=== PATIENT | female | born 1960 | race Caucasian/White ===

== ENCOUNTER 2017-06-04 14:17 | Emergency (ER) | payer BC ==
[2017-06-04 14:50] LABS: ABS Basophils 0 10^3/ul (0-0.2); ABS Eosinophils 0.1 10^3/ul (0-0.6); ABS Lymphocytes 2.3 10^3/ul (1.0-4.8); ABS Monocytes 0.3 10^3/ul (0-0.8); ABS Neutrophils 3.5 10^3/ul (1.5-7.7); ABS Nucleated RBC 0 10^3/ul; Eosinophil % 1.2 % (0-6); Hematocrit 46 % (35-47); Hemoglobin 16.2 g/dl (12.0-16.0); Lymphocyte % 36.8 % (25-47); Mean Corpuscular HGB Conc 35 g/dl (31-36); Mean Corpuscular Hemoglobin 34 pg (27-31); Mean Corpuscular Volume 96 fL (80-97); Mean Platelet Volume 8 um3 (7.4-10.4); Nucleated Red Blood Cells % 0.1; Platelet Count 230 10^3/ul (150-450); Red Blood Count 4.77 10^6/ul (4.0-5.4); Red Cell Distribution Width 13 % (10.5-15); White Blood Count 6.2 10^3/ul (3.5-10.8)
--- NOTE | 2017-06-04 15:38 | RAD ---
INDICATION: Chest pain and tightness COMPARISON: None TECHNIQUE: PA and lateral views of the chest were obtained. FINDINGS: The heart and mediastinum are normal in size and contour. The lungs are grossly clear. There is no evidence of large pleural effusion. Degenerative changes of the thoracic spine include loss of intervertebral disc height and anterior marginal osteophyte formation. Involving the lateral aspect of the right sixth rib there is mild bony expansion of the cortex, possibly the site of an old rib fracture. This appears to have been present on the October 27, 2016 radiograph of the right shoulder. There is no radiographic evidence of free air beneath the diaphragm IMPRESSION: 1. No radiographic evidence of acute cardiopulmonary disease. 2. MILD BONY EXPANSION INVOLVING THE LATERAL RIGHT SIXTH RIB WHICH APPEARS STABLE COMPARED TO THE OCTOBER 27, 2016 RIGHT SHOULDER RADIOGRAPH. PLEASE CORRELATE TO PHYSICAL EXAMINATION AND HISTORY OF PRIOR INJURY AT THIS SITE.
[2017-06-04] MEDS ORDERED: Albuterol/Ipratropium NEB.SOL* Albuterol 2.5 MG/Ipratropium 0.5 MG 3 ML INH ONE (17:18)
[2017-06-04 19:15] VITALS: BP 111/62
--- NOTE | 2017-06-04 21:28 | ED ---
Andry Lunsford Jennifer, scribed for Dell Daniels MD on 06/04/17 at 1718 . HPI Chest Pain - HPI Summary HPI Summary: The patient is a 57 year old female who was sent from Urgent Care with tightness and pressure in the chest that began yesterday. She describes that the pain is alleviated when she relaxes and there are no aggravating factors. She additionally complains of coughing. The patient denies swelling in the legs. - History of Current Complaint Chief Complaint: EDChestPainROMI Time Seen by Provider: 06/04/17 17:07 Hx Obtained From: Patient Onset/Duration: Started Days Ago - yesterday, Still Present Timing: Intermittent Initial Severity: Mild Current Severity: Mild Pain Intensity: 1 Pain Scale Used: 0-10 Numeric Chest Pain Location: Mid Sternal Chest Pain Radiates: No Character: Pressure/Squeezing, Tightness Aggravating Factor(s): Nothing Alleviating Factor(s): Other: - Relaxed Associated Signs and Symptoms: Positive: Chest Pain, Cough. Negative: Edema - Allergy/Home Medications Allergies/Adverse Reactions: Allergies Allergy/AdvReac Type Severity Reaction Status Date / Time MS Penicillins [Penicillins] Allergy EDEMA ALL Verified 05/15/16 13:23 OVER BODY INCLUDING EYES Home Medications: Home Medications Albuterol HFA INHALER* [Ventolin HFA Inhaler*] 1 puff PO Q4HR PRN 06/04/17 [ History Confirmed 06/04/17] Ibuprofen TAB* [Motrin TAB* 800 MG] 800 mg PO DAILY 06/04/17 [History Confirmed 06/04/17] Multivitamins/Minerals TAB* [Thera M Plus TAB*] 1 tab PO DAILY 06/04/17 [ History Confirmed 06/04/17] PMH/Surg Hx/FS Hx/Imm Hx Endocrine/Hematology History: Denies: Hx Diabetes, Hx Systemic Lupus Erythematosus Cardiovascular History: Denies: Hx Congestive Heart Failure, Hx Hypertension, Hx Pacemaker/ICD Respiratory History: Reports: Hx Asthma - SEASONAL, Hx Seasonal Allergies History: Denies: Hx Dialysis, Hx Renal Disease Musculoskeletal History: Reports: Hx Back Problems - Herniated Disc in low back , Other Musculoskeletal History - Chronic Neck Pain Denies: Hx Rheumatoid Arthritis Sensory History: Reports: Hx Contacts or Glasses Denies: Hx Hearing Aid Opthamlomology History: Reports: Hx Contacts or Glasses Psychiatric History: Denies: Hx Panic Disorder - Cancer History Cancer Type, 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 CYST REMOVED LT FOOT. SKIN LESION LEFT POSTERIOR FOREARM REMOVED. LEFT FOOT- REMOVAL OF BACKED UP SWEAT GLAND Infectious Disease History: No Infectious Disease History: Denies: Traveled Outside the [place] in Last 30 Days - Family History Known Family History: Positive: Diabetes - Social History Alcohol Use: None Substance Use Type: Reports: None Smoking Status (MU): Heavy Every Day Tobacco Smoker Review of Systems Positive: Chest Pain - Tightness and pressure Positive: Cough Negative: Edema All Other Systems Reviewed And Are Negative: Yes Physical Exam - Summary Physical Exam Summary: Appearance: The patient is well-nourished in no acute distress and in no acute pain. Skin: The skin is warm and dry and skin color reflects adequate perfusion. HEENT: ~The head is normocephalic and atraumatic. The pupils are equal and reactive. The conjunctivae are clear and without drainage. ~Nares are patent and without drainage. ~Mouth reveals moist mucous membranes and the throat is without erythema and exudate. ~The external ears are intact. The ear canals are patent and without drainage. The tympanic membranes are intact. Neck: the neck is supple with full range of motion and non-tender. There are no carotid bruits. ~There is no neck vein distension. Respiratory: Chest is non-tender. ~Lungs are clear to auscultation and breath sounds are symmetrical and equal. Cardiovascular: Heart is regular rate and rhythm. ~There is no murmur or rub auscultated. ~~There is no peripheral edema and pulses are symmetrical and equal. Abdomen: The abdomen is soft and non-tender. ~There are normal bowel sounds heard in all four quadrants and there is no organomegaly palpated. Musculoskeletal: There is no back tenderness noted. ~Extremities are non-tender with full range of motion. ~There is good capillary refill. ~There is no peripheral edema or calf tenderness elicited. Neurological: Patient is alert and oriented to person, place and time. ~The patient has symmetrical motor strength in all four extremities. ~Cranial nerves are grossly intact. Deep tendon reflexes are symmetrical and equal in all four extremities. Psychiatric: The patient has an appropriate affect and does not exhibit any anxiety or depression. Triage Information Reviewed: Yes Vital Signs On Initial Exam: Initial Vitals Temp Pulse Resp BP Pulse Ox 98.1 F 96 16 168/98 98 06/04/17 14:20 06/04/17 14:20 06/04/17 14:20 06/04/17 14:20 06/04/17 14:20 Vital Signs Reviewed: Yes Diagnostics - Vital Signs Vital Signs Temp Pulse Resp BP Pulse Ox 06/04/17 16:55 84 20 97 06/04/17 16:53 123/67 06/04/17 16:21 100.2 F 88 122/62 98 06/04/17 14:20 98.1 F 96 16 168/98 98 - Laboratory Lab Results: Lab Results 06/04/17 06/04/17 06/04/17 Range/Units 14:40 14:40 14:40 WBC 6.2 (3.5-10.8) 10^3/ul RBC 4.77 (4.0-5.4) 10^6/ul Hgb 16.2 H (12.0-16.0) g/dl Hct 46 (35-47) % MCV 96 (80-97) fL MCH 34 H (27-31) pg MCHC 35 (31-36) g/dl RDW 13 (10.5-15) % Plt Count 230 (150-450) 10^3/ul MPV 8 (7.4-10.4) um3 Neut % (Auto) 56.8 (38-83) % Lymph % (Auto) 36.8 (25-47) % [place] % (Auto) 4.5 (1-9) % Eos % (Auto) 1.2 (0-6) % Baso % (Auto) 0.7 (0-2) % Absolute Neuts (auto) 3.5 (1.5-7.7) 10^3/ul Absolute Lymphs (auto) 2.3 (1.0-4.8) 10^3/ul Absolute Monos (auto) 0.3 (0-0.8) 10^3/ul Absolute Eos (auto) 0.1 (0-0.6) 10^3/ul Absolute Basos (auto) 0 (0-0.2) 10^3/ul Absolute Nucleated RBC 0 10^3/ul Nucleated RBC % 0.1 Sodium 139 (133-145) mmol/L Potassium 3.6 (3.5-5.0) mmol/L Chloride 106 (101-111) mmol/L Carbon Dioxide 29 (22-32) mmol/L Anion Gap 4 (2-11) mmol/L BUN 10 (6-24) mg/dL Creatinine 0.90 (0.51-0.95) mg/dL Est GFR ( Amer) 83.6 (>60) Est GFR (Non-Af Amer) 65.0 (>60) BUN/Creatinine Ratio 11.1 (8-20) Glucose 147 H (70-100) mg/dL Lactic Acid 1.0 (0.5-2.0) mmol/L Calcium 9.6 (8.6-10.3) mg/dL Total Bilirubin 0.50 (0.2-1.0) mg/dL AST 29 (13-39) U/L ALT 34 (7-52) U/L Alkaline Phosphatase 76 (34-104) U/L Troponin I 0.00 (<0.04) ng/mL Total Protein 7.0 (6.4-8.9) g/dL Albumin 4.6 (3.2-5.2) g/dL Globulin 2.4 (2-4) g/dL Albumin/Globulin Ratio 1.9 (1-3) Result Diagrams: 06/04/17 14:40 06/04/17 14:40 Lab Statement: Any lab studies that have been ordered have been reviewed, and results considered in the medical decision making process. - Radiology CXR Xray Interpretation: No Acute Changes - 1. No radiographic evidence of acute cardiopulmonary disease. 2. MILD BONY EXPANSION INVOLVING THE LATERAL RIGHT SIXTH RIB WHICH APPEARS STABLE COMPARED TO THE OCTOBER 27, 2016 RIGHT SHOULDER RADIOGRAPH. PLEASE CORRELATE TO PHYSICAL EXAMINATION AND HISTORY OF PRIOR INJURY AT THIS SITE. Dr. Daniels has reviewed this report. Radiology Interpretation Completed By: Radiologist - EKG 14:23 Cardiac Rate: NL EKG Rhythm: Sinus Rhythm - 92 BPM EKG Interpretation: Unspecific inferolateral changes Chest Pain Course/Dx - Course Course Of Treatment: Ms Shepherd came in with some chest tightness after a recent URI. He ECG and troponin were fine and she improved a lot with a nebulizer. I think she has some mild bronchospasm although I can't hear any wheezing. She has an inhaler at home and I encouraged her to use it as prescribed for a couple days. - Diagnoses Provider Diagnoses: Bronchospasm Discharge - Discharge Plan Condition: Stable Disposition: HOME Patient Education Materials: Bronchospasm (ED) Referrals: Luke Angeles MD [Primary Care Provider] - 3 Days Additional Instructions: Follow up with your primary care physician in three days. Return to the emergency department for any new or worsening symptoms. The documentation as recorded by the Andry roberts Jennifer accurately reflects the service I personally performed and the decisions made by me, Dell Daniels MD.
== END 2017-06-04 19:16 | disposition home or self-care (01) ==
LOC: ED 14:17
DX: J98.01 Acute bronchospasm (principal); R07.89 Other chest pain; F17.200 Nicotine dependence, unspecified, uncomplicated; Z88.0 Allergy status to penicillin
CPT/HCPCS: 36415; 71046; 80053; 83605; 84484; 85025; 93005; 94640; 99283; A9270-GY

== ENCOUNTER → 2019-02-19 | Day surgery (SDC) | payer BC ==
[~2019-02-19] MED LIST: Buffered Lidocaine 1% SYRIN* 1 ML/SYRINGE INTRADERM ONE; Clindamycin 900 MG/D5W BAG(*) 900 MG/50 ML BAG IVPB ONE; Dexamethasone IV* 4 MG/ML 1 ML (4 MG) IV SLOW PU ONE; Dexamethasone IV* 4 MG/ML 1 ML (4 MG) ONE; DiMENhydriNATE IV* 50 MG/ML VIAL ONE; Famotidine IV* 10 MG/ML 2 ML (20 mg) IV ONE; Famotidine IV* 10 MG/ML 2 ML (20 mg) ONE; KETAMINE HCL* 50 MG/ML 10 ML VIAL ONE; Ketorolac INJ* 30 MG/ML 1 ML VIAL ONE; Lactated Ringers 1000 ML Bag* 1,000 ML IV SCH; Levalbuterol 0.63MG/3ML NEB* UNIT OF USE INH ONE; Lidocaine 1% MPF ** 5 ML VIAL ONE; Lidocaine 2% PF * 5 ML VIAL ONE; Midazolam* 1 MG/ML 5 ML VIAL (5 MG) ONE; Ondansetron INJ* 2 MG/ML VIAL ONE; Propofol* 10 MG/ML 20 ML BTL ONE; ROPIVACAINE 5 MG/ML 30 ML BTL (0.5%) ONE; Ropivacaine 0.2% * 2 MG/ML VIAL ONE; Succinylcholine* 20 MG/ML 10 ML VIAL ONE; fentaNYL* 50 MCG/ML 2 ML VIAL (100 MCG VIAL) ONE
[2019-02-19] MEDS: Levalbuterol 0.63MG/3ML NEB* UNIT OF USE INH ONE ×2 (09:47→10:27)
[2019-02-19 13:45] VITALS: BP 129/79
--- NOTE | 2019-02-20 00:53 | OP ---
DATE OF OPERATION: 02/19/19 [facility] DATE OF : 64 SURGEON: Arvin Vazquez MD DIRECTOR BUSINESS SYSTEMS: Barb Parra. An assistant store director was needed for the entirety of the case to help with positioning, retraction, and utilized throughout all portions of the case. ANESTHESIOLOGIST: Dr. Gill. ANESTHESIA: General interscalene block. PRE-OP DIAGNOSIS: Right shoulder impingement with possible partial-thickness tear, status post fracture and bicipital tendinitis. POST-OP DIAGNOSIS: Right shoulder impingement with possible partial-thickness tear, status post fracture and bicipital tendinitis. OPERATIVE PROCEDURE: Right shoulder arthroscopy with: 1. Extensive glenohumeral debridement including removal of loose bodies x3 and chondroplasty. 2. Subacromial decompression with acromioplasty. 3. Rotator cuff repair with Regeneten patch. 4. Subpectoral biceps tenodesis. IMPLANTS USED: One Regeneten patch and one 2.8 mm Q-Fix. INDICATIONS: Lizbeth Shepherd is a 59-year-old female with persistent right shoulder pain with that failed conservative management. She has elected to proceed with surgical treatment. Risks and benefits were discussed at length including but not limited to, bleeding; infection; damage to nerves, vessels, surrounding structures; wound nonhealing; persistent pain; need for surgery; scarring; stiffness; incomplete relief of symptoms; risk of anesthesia. DESCRIPTION OF PROCEDURE: The patient was greeted in the preoperative area by the attending surgeon. The correct extremity was marked. Consent was confirmed. The patient underwent interscalene nerve block by the anesthesiologist, after which she was brought back to the operative suite, placed in the supine position on the operating table, underwent general anesthesia with endotracheal intubation, after which she was placed in left lateral decubitus position with axillary roll. All bony prominences were padded and secured to the pegboard. The right shoulder was draped unsterile with 10 pounds of traction. The right was then prepped and draped in the usual sterile fashion beginning with chlorhexidine soap, scrub, and alcohol wipe and a final prep with ChloraPrep. After appropriate surgical pause indicating site, side, procedure, and administration of antibiotics, a standard postero-lateral portal was made sharply with an 11 blade. Scope was introduced into the joint. Joint was examined. There was evidence of a SLAP type 2 tear. An anterior portal was made in an outside-in fashion. Scissors were used to tenotomize the biceps for later tenodesis. Subscap was intact. There was some high-grade partial- thickness tearing of the under-surface of the rotator cuff. The inferior recess was intact, but there were 3 loose bodies greater than 5 mm. A chondral flap has present. There were grade 2 changes to the glenoid. This was debrided back using the shaver. Anterior, posterior, and superior labrum were also debrided back. Attention was then directed to the subacromial space. With the scope positioned in the subacromial space, a lateral portal was made in an outside-in fashion. Shaver was used to debride back the abundant thick bursa that was present. The remainder of the capsule looked intact. There was some mild partial-thickness tearing about the infraspinatus. Once a bursectomy was completed, anterolateral spur was identified in the undersurface of the acromion, skeletonized using electrocautery device and 4.0 oval bur was then used for acromioplasty. Once the acromioplasty was completed, all excess debris was removed. The decision was made to treat the partial-thickness tearing with a Regeneten patch. The Regeneten patch was brought to the field and placed under arthroscopic visualization through a separate stab incision. Cannula was placed and the tendon darwin were secured medially and laterally, the PEEK bone darwin were used to stabilized the patch to the bone. The patch was found to be well secured. The wounds were copiously irrigated with sterile saline. Final images were obtained. Attention was directed to the biceps. The bed was air planed to the right side. The anterior aspect of the shoulder was then prepped again using ChloraPrep. A 15-blade was used to make an incision along the biceps tendon. Soft tissues were carefully dissected to expose the pec tendon. The remainder of resection was done bluntly. The pec was identified. The biceps was then brought to the wound, had significant tendinosis and tendinitis. The groove was then prepared in the usual fashion with red ball rasp and osteotome to allow for bony bleeding bed. The Q-Fix was then drilled unicortically and deployed with excellent purchase. The sutures were then passed through the tendon 1 cm proximal to musculotendinous junction in a Shaka-Jeremiah type configuration. The excess stump was excised. The biceps was returned back to the wound and secured. The wound was copiously irrigated with sterile saline. The anterior wound was closed in layers with 3-0 Monocryl. The portals were closed with 3-0 nylon in interrupted fashion. Sterile dressings were applied. A Cryo/Cuff as well as an UltraSling were applied. She was awoken from anesthesia and transferred to PACU in stable condition. POSTOPERATIVE PLAN: She will be nonweightbearing. She will be discharged on pain medications. DVT prophylaxis was considered but deferred due to no previous personal or family history. I will see the patient back in 10 to 14 days. [id number]/[facility] #: [id number] DOTTIE
== END | disposition home or self-care (01) ==
LOC: OR 08:59
PROVIDERS: ATTEND Orthopaedic Surgery
DX: M75.41 Impingement syndrome of right shoulder (principal); M75.21 Bicipital tendinitis, right shoulder; S46.011D Strain of muscle(s) and tendon(s) of the rotator cuff of right shoulder, subsequent encounter; M19.011 Primary osteoarthritis, right shoulder; X58.XXXD Exposure to other specified factors, subsequent encounter; Y92.9 Unspecified place or not applicable; F17.210 Nicotine dependence, cigarettes, uncomplicated; J45.909 Unspecified asthma, uncomplicated; M54.9 Dorsalgia, unspecified; G89.18 Other acute postprocedural pain
CPT/HCPCS: C1713; C1776; J0330; J1100; J1240; J1885; J2250; J2405; J2704; J2795; J3010